=== PATIENT | male | born 1985 | race American Indian/Alaskan Native ===

== ENCOUNTER 2016-10-06 16:52 | Emergency (ER) | payer SELFPAY ==
--- NOTE | 2016-10-06 18:30 | Emergency Department Report ---
Chief Complaint: Psych Stated Complaint: MH EVAL / RACING THOUGHTS Time Seen by Provider: 10/06/16 18:24 - HPI History of Present Illness: 30 y/o male complain of having denies any suicidal or homicidal ideation .pt state that he out his medication .pt state that he want to go to [place] for his sister and ex -girlfriend make him angry . - Exam Vital Signs: Vital Signs 10/06/16 18:00 Temperature 97.4 F L Pulse Rate 72 Respiratory 17 Rate Blood Pressure 122/68 O2 Sat by Pulse 98 Oximetry Physical Exam: GENERAL: The patient is well-developed and well-nourished. Patient is in NAD. HENT: Normocephalic. Atraumatic. Patient has moist mucous membranes. Throat: No erythema, swelling or exudates. EYES: Extraocular motions are intact, PERRL NECK: Supple. No meningitic signs are noted. There is no adenopathy noted. CHEST/LUNGS: Clear to auscultation bilaterally. No wheezing, rales or rhonchi noted. There is no respiratory distress noted. HEART/CARDIOVASCULAR: Regular rate and rhythm. Normal S1 S2. No murmurs, rubs , clicks, or gallops. ABDOMEN: Abdomen is soft, nontender.. Bowel sounds normoactive. There is no abdominal distention. Negative rebound tenderness. Negative Rovsing. : Deferred. SKIN: There is no rash. There is no edema. There is no diaphoresis. NEURO: The patient is A&Ox3. The patient has no focal neurologic deficits. MUSCULOSKELETAL: There is no tenderness or deformity. There is no limitation range of motion. PSYCH: Pt has appropriate mood and affect. MSE screening note: Focused history and physical exam performed. Due to findings the following was ordered: ED Disposition for MSE Condition: Stable
[2016-10-06 18:42] LABS: Basophils % (Auto) 0.4 % (0.0-1.8); Eosinophils % (Auto) 2.6 % (0.0-4.3); Hematocrit 42.5 % (35.5-45.6); Hemoglobin 13.9 gm/dl (11.8-15.2); Mean Corpuscular HGB Conc 33 % (32-34); Mean Corpuscular Hemoglobin 27 pg (28-32); Mean Corpuscular Volume 84 fl (84-94); Platelet Count 247 K/mm3 (140-440); Red Blood Count 5.07 M/mm3 (3.65-5.03); Red Cell Distribution Width 14.9 % (13.2-15.2); White Blood Count 7.1 K/mm3 (4.5-11.0)
[2016-10-06 19:04] LABS: Alanine Aminotransferase 38 units/L (7-56); Albumin 4.3 g/dL (3.9-5); Albumin/Globulin Ratio 1.4 %; Alkaline Phosphatase 92 units/L (35-129); BUN/Creatinine Ratio 21.42; Bilirubin,Total 0.4 mg/dL (0.1-1.2); Blood Urea Nitrogen 15 mg/dL (9-20); Calcium 8.7 mg/dL (8.4-10.2); Carbon Dioxide 28 mmol/L (22-30); Chloride 100.1 mmol/L (98-107); Glucose 90 mg/dL (75-100); Potassium 4.3 mmol/L (3.6-5.0); Sodium 141 mmol/L (137-145); Total Protein 7.4 g/dL (6.3-8.2)
[2016-10-06 19:19] LABS: Urine Drugs of Abuse Note Disclamer
[2016-10-06 19:20] LABS: Anion Gap 17 mmol/L
[2016-10-06 19:37] LABS: Bilirubin,Urine NEG (Negative); Blood,Urine MOD (Negative); Ketones,Urine NEG (Negative); Leukocyte Esterase,Urine TR (Negative); Mucus,Urine FEW /HPF; Nitrite,Urine NEG (Negative); Protein,Urine <15 mg/dL mg/dL (Negative)
--- NOTE | 2016-10-07 07:37 | Emergency Department Report ---
HPI - General Chief Complaint: Psych Time Seen by Provider: 10/07/16 07:31 - HPI HPI: Chief complaint: I need a place to stay until October 09 HPI: Patient with a history of bipolar schizoaffective disorder states that since his family is trying to take his check and he can't live with them anymore and needs a place to stay until his check comes October 09. Patient denies homicidal suicidal thoughts. Patient denies hallucinations. Patient is taking his medication. Mode of arrival: [private car] Source: [Patient] and nursing notes Began: Ongoing Duration: Ongoing Context: The patient receives a disability check but is currently without money and needs his check so he can leave home. Quality: Pain-free Severity: 0 out of 10 Improved with: Nothing Worsened with: Nothing Associated signs and symptoms: Denies any physical ailments ED Past Medical Hx - Past Medical History Previous Medical History?: Yes Hx Psychiatric Treatment: Yes (bipolar schizoaffective) - Surgical History Past Surgical History?: No - Social History Smoking Status: Smoker, Current Status Unknown - Medications Home Medications: Home Medications Medication Instructions Recorded Confirmed Last Taken Type Sertraline [Zoloft] 50 mg PO QDAY 10/07/16 10/07/16 1 Day Ago History ED Review of Systems ROS: Stated complaint: MH EVAL / RACING THOUGHTS Other details as noted in HPI ROS Constitutional: No fever ENT: No uri symptoms Cardiovascular: No chest pain Respiratory: No sob or cough GI: No nausea vomiting or diarrhea : No dysuria frequency or urgency, Skin: No rash Neuro: No focal weakness or numbness Psych: depression Aurelio/lymph: No edema Physical Exam - Physical Exam Vital Signs: Vital Signs 10/06/16 18:00 Temperature 97.4 F L Pulse Rate 72 Respiratory 17 Rate Blood Pressure 122/68 O2 Sat by Pulse 98 Oximetry Physical Exam: GENERAL: The patient is well-developed well-nourished . HEENT: Normocephalic. Atraumatic. Extraocular motions are intact. Patient has moist mucous membranes. NECK: Supple. No meningitic signs are noted. There is no adenopathy noted. CHEST/LUNGS: Clear to auscultation. There is no respiratory distress noted. HEART/CARDIOVASCULAR: Regular. There is no tachycardia. There is no gallop rub or murmur. ABDOMEN: Abdomen is soft, nontender. Patient has normal bowel sounds. There is no abdominal distention. SKIN: There is no rash. There is no edema. There is no diaphoresis. NEURO: The patient is awake, alert, and oriented. The patient is cooperative. The patient has no focal neurologic deficits. The patient has normal speech. MUSCULOSKELETAL: There is no tenderness or deformity. There is no limitation range of motion. There is no evidence of acute injury. ED Course Vital Signs 10/06/16 18:00 Temperature 97.4 F L Pulse Rate 72 Respiratory 17 Rate Blood Pressure 122/68 O2 Sat by Pulse 98 Oximetry - Reevaluation(s) Reevaluation #1: 10/07/16 07:58 Patient will be evaluated by mental health crisis. Reevaluation #2: 10/07/16 11:05 Patient decided he did not want to wait to be seen by mental health barnworker groom and is ready to go home. As the patient does not meet criteria for 1013 we will discharge him to home. ED Medical Decision Making - Lab Data Result diagrams: 10/06/16 18:29 10/06/16 18:29 Laboratory Tests 10/06/16 10/06/16 10/06/16 18:29 18:29 18:29 Salicylates < 0.3 L Acetaminophen < 15.0 U Marijuana (THC) Screen Plasma/Serum Alcohol < 0.01 10/06/16 19:11 Salicylates Acetaminophen U Marijuana (THC) Screen Presumptive positive Plasma/Serum Alcohol Critical care attestation.: If time is entered above; I have spent that time in minutes in the direct care of this critically ill patient, excluding procedure time. ED Disposition Clinical Impression: Bipolar 1 disorder Schizoaffective disorder Qualifiers: Schizoaffective disorder type: bipolar Qualified Code(s): F25.0 - Schizoaffective disorder, bipolar type Disposition: DISCHARGED TO HOME OR SELFCARE Is pt being admited?: No Does the pt Need Aspirin: No Condition: Stable Instructions: Bipolar Disorder (ED) Referrals: [facility] [Outside] - 3-5 Days PRIMARY CARE, [Primary Care Provider] - 3-5 Days Time of Disposition: 11:04
[2016-10-07 09:58] VITALS: BP 128/77
== END 2016-10-07 11:23 | disposition home or self-care (01) ==
LOC: EEVIPCON 16:52 → ED 16:52
DX: F31.9 Bipolar disorder, unspecified (principal); F25.0 Schizoaffective disorder, bipolar type; F17.200 Nicotine dependence, unspecified, uncomplicated
CPT/HCPCS: 36415; 80053; 81001; 85025; 99284; G0479; G0480; 80301; 80320